=== PATIENT | male | born 1940 | race Caucasian/White ===

== ENCOUNTER 2016-11-21 13:33 | Observation (INO) | payer OTHER ==
[~2016-11-21] VITALS: Ht 182.9 cm; Wt 95.0 kg
[2016-11-21] VITALS (8 sets, daily range): BP systolic 119–166; BP diastolic 54–85; PULSE 68–99; RESP 16–18; TEMP 98.1–98.8; O2SAT 96–99
[~2016-11-21 13:33] MED LIST: PROPOFOL 200 MG/20 ML AMP IV ONE
--- NOTE | 2016-11-21 13:43 | PD ---
Physical Exam Date Seen by Provider: Nov 21, 2016 Time Seen by Provider: 13:41 Narrative 76 YOWM SENT FOR POS HEMACULT AND BL[facility] STO[facility] NO N/ V, ABD PAIN. SYMPTOMS FOR PAST FEW DAYS. VS NOTED WAITING FOR BED PLACEMENT Data Data Last Documented VS Vital Signs Date Time Temp Pulse Resp B/P (MAP) Pulse Ox O2 Delivery O2 Flow Rate FiO2 11/21/16 13:36 98.8 73 18 135/54 (81) 97 Room Air [facility] Medical Record Reviewed: No Supervised Visit with INO: Yes Arya Suarez Nov 21, 2016 13:43
[2016-11-21] MEDS ORDERED: PANTOPRAZOLE SODIUM 40 MG VIAL IV PUSH ONE (14:30)
[2016-11-21 14:36] LABS: BASOPHIL # 0.1 TH/MM3 (0-0.2); EOSINOPHIL # 0.1 TH/MM3 (0-0.4); EOSINOPHIL % 1.3 % (0.0-4.0); HEMATOCRIT 25.8 % (39.0-51.0); HEMO FLAGS DIFF FINAL; LYMPH % 17.1 % (9.0-44.0); LYMPHOCYTE # 1.2 TH/MM3 (1.0-4.8); MEAN CELL VOLUME 92.2 FL (80.0-100.0); MEAN CORPUSCULAR HEMOGLOBIN 31.4 PG (27.0-34.0); MEAN CORPUSCULAR HGB CONC 34.1 % (32.0-36.0); MONO % 8.9 % (0.0-8.0); NEUT % 71.7 % (16.0-70.0); PLATELET COUNT 257 TH/MM3 (150-450); RED CELL DISTRIBUTION WIDTH 13.7 % (11.6-17.2); WHITE BLOOD COUNT 6.9 TH/MM3 (4.0-11.0)
[2016-11-21 14:49] LABS: APTT (PATIENT) 24.1 SEC (24.3-30.1); PROTHROMBIN TIME - PATIENT 10.9 SEC (9.8-11.6)
[2016-11-21 14:54] LABS: ALKALINE PHOSPHATASE 80 U/L (45-117); TOTAL BILIRUBIN ADULT 0.3 MG/DL (0.2-1.0)
[2016-11-21 15:00] LABS: ALT (GPT) 31 U/L (12-78); ANION GAP 7 MEQ/L (5-15); AST (GOT) 24 U/L (15-37); BICARBONATE 25.6 MEQ/L (21.0-32.0); BLOOD UREA NITROGEN 17 MG/DL (7-18); CHLORIDE 109 MEQ/L (98-107); GLOMERULAR FILTRATION RATE 71 ML/MIN (>89); SODIUM (NA) 142 MEQ/L (136-145)
[2016-11-21] MEDS ORDERED: LIPI40TA PO (15:00)
[2016-11-21] MEDS ORDERED: ASPI1TAB91 PO (15:00)
[2016-11-21] MEDS ORDERED: MULT10CA PO (15:00)
[2016-11-21] MEDS ORDERED: FOLI1CAP7 PO (15:00)
[2016-11-21] MEDS ORDERED: POTA-88 PO (15:00)
[2016-11-21] MEDS ORDERED: METO25TA3 PO (15:00)
[2016-11-21] MEDS ORDERED: LISI30TA4 PO (15:00)
[2016-11-21] MEDS ORDERED: PLAV75TA29 PO (15:00)
--- NOTE | 2016-11-21 15:30 | PD ---
HPI Chief Complaint: GI Complaint Time Seen by Provider: 14:06 Travel History International Travel<30 days: No Contact w/Intl Traveler<30days: No Traveled to known affect area: No History of Present Illness HPI 76-year-old male that presents to the ED via private vehicle for evaluation of positive hemocult. Patient comes here for evaluation of this. Per patient and family members she's been weak since today but has been having dark stools for about a week now. He denies any injuries. He denies any diarrhea. Per patient his stools are just black. He states that his diet has been the same. Per significant other he is allergies has decreased today significantly. He is usually very active [place]. 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 The patient his been compliant with his medications. He went today to get a six- month checkup by his doctor and he mentioned the black stools. He was told to come here to get evaluated. He has had a colonoscopy with per patient he is due for one this year. Denies any fevers chills or sweats. No nausea or vomiting. No chest pain or shortness of breath. PFSH Past Medical History Hx Anticoagulant Therapy: Yes High Cholesterol: Yes Cerebrovascular Accident: Yes Coronary Artery Disease: Yes Diabetes: Yes Patient Takes Glucophage: No Diminished Hearing: No Diverticulitis: Yes GERD: Yes Hiatal Hernia: Yes Past Surgical History Abdominal Surgery: Yes (inginual hernia repair) Appendectomy: Yes Cardiac Surgery: Yes Other Surgery: Yes (r carotid endardectomy) Social History Alcohol Use: No Tobacco Use: No Substance Use: No Allergies-Medications (Allergen,Severity, Reaction): Coded Allergies: acetaminophen (Verified Allergy, Unknown, 11/21/16) atenolol (Verified Allergy, Unknown, 11/21/16) fish oil (Verified Allergy, Unknown, 11/21/16) glimepiride (Verified Allergy, Unknown, 11/21/16) hydrochlorothiazide (Verified Allergy, Unknown, 11/21/16) metformin (Verified Allergy, Unknown, 11/21/16) nifedipine (Verified Allergy, Unknown, 11/21/16) oxycodone (Verified Allergy, Unknown, 11/21/16) simvastatin (Verified Allergy, Unknown, 11/21/16) Reported Meds & Prescriptions Reported Meds & Active Scripts Active Reported Klor-Con M10 (Potassium Chloride Microencaps) 10 Meq Tab 10 Meq PO DAILY Preservision Areds 2 Softgel (Vit C/E/Zn/Coppr/Lutein/Zeaxan) 250-200-40 Capsule 1 Cap PO BID Plavix (Clopidogrel Bisulfate) 75 Mg Tab 75 Mg PO DAILY Lipitor (Atorvastatin Calcium) 40 Mg Tab 40 Mg PO HS Folic Acid 0.8 Mg Cap 800 Mcg PO DAILY Aspirin Adult Low Strength (Aspirin) 81 Mg Tabdr 81 Mg PO DAILY Metoprolol Tartrate 25 Mg Tab 25 Mg PO BID Lisinopril 30 Mg Tab 30 Mg PO DAILY Review of Systems Except as stated in HPI: all other systems reviewed are Neg Physical Exam Narrative GENERAL: SKIN: Warm and dry. HEAD: Atraumatic. Normocephalic. EYES: Pupils equal and round. No scleral icterus. No injection or drainage. ENT: No nasal bleeding or discharge. Mucous membranes pink and moist. Tongue is midline. No uvula deviation. NECK: Trachea midline. No JVD. CARDIOVASCULAR: Regular rate and rhythm. No murmurs, S3, S4. RESPIRATORY: No accessory muscle use. Clear to auscultation. Breath sounds equal bilaterally. GASTROINTESTINAL: Abdomen soft, non-tender, nondistended. Hepatic and splenic margins not palpable. MUSCULOSKELETAL: Extremities without clubbing, cyanosis, or edema. No obvious deformities. Full range of motion of the upper and lower extremities bilaterally. 2+ pulses bilaterally. NEUROLOGICAL: Awake and alert. No obvious cranial nerve deficits. Motor grossly within normal limits. Five out of 5 muscle strength in the arms and legs. Normal speech. PSYCHIATRIC: Appropriate mood and affect; insight and judgment normal. Data Data Last Documented VS Vital Signs Date Time Temp Pulse Resp B/P (MAP) Pulse Ox O2 Delivery O2 Flow Rate FiO2 11/21/16 16:02 99 16 161/71 (101) 98 11/21/16 15:57 Room Air 11/21/16 13:36 98.8 Orders Orders Complete Blood Count With Diff (11/21/16 14:14) Comprehensive Metabolic Panel (11/21/16 14:14) Lipase (11/21/16 14:14) Prothrombin Time / Inr (Pt) (11/21/16 14:14) Act Partial Throm Time (Ptt) (11/21/16 14:14) Urinalysis - C+S If Indicated (11/21/16 14:14) Ct Abd/Pel W Iv Contrast(Rout) (11/21/16 14:14) Iv Access Insert/Monitor (11/21/16 14:14) Ecg Monitoring (11/21/16 14:14) Oximetry (11/21/16 14:14) Type And Screen (11/21/16 14:14) Pantoprazole Inj (Protonix Inj) (11/21/16 14:30) Pantoprazole Inj (Protonix Inj) (11/21/16 14:30) Iohexol 350 Inj (Omnipaque 350 Inj) (11/21/16 15:54) Troponin I (11/21/16 16:05) Ckmb (Isoenzyme) Profile (11/21/16 16:05) Electrocardiogram (11/21/16 ) Chest, Single Ap (11/21/16 ) Hgb & Hct (11/21/16 16:27) Hgb & Hct (11/21/16 22:27) Hgb & Hct (11/22/16 04:27) Hgb & Hct (11/22/16 10:27) Place In Observation (11/21/16 ) Vital Signs (Adult) Q4H (11/21/16 16:27) Activity Bed Rest With Brp (11/21/16 16:27) Bedside Glucose SID.AC&HS (11/21/16 16:27) Recoil Spring Winder / Telemetry .CONTINUOUS (11/21/16 16:27) Intake + Output SID.QSHIFT (11/21/16 16:27) Notify Dr: Other (11/21/16 16:27) Diet Npo (11/21/16 Dinner) Sodium Chlor 0.9% 1000 Ml Inj (Ns 1000 M (11/21/16 17:00) Sodium Chloride 0.9% Flush (Ns Flush) (11/21/16 16:30) Sodium Chloride 0.9% Flush (Ns Flush) (11/21/16 21:00) Acetaminophen (Tylenol) (11/21/16 16:30) Ondansetron Inj (Zofran Inj) (11/21/16 16:30) Basic Metabolic Panel (Bmp) (11/22/16 06:00) Complete Blood Count With Diff (11/22/16 06:00) Resp Oxygen Avery C Titrat 1-4 L (11/21/16 ) Scd Bilateral/Knee High SID.BID (11/21/16 16:27) Pharmacologic Contraindication (11/21/16 16:27) Naloxone Inj (Narcan Inj) (11/21/16 16:30) Docusate Sodium-Senna (Indira-Colace) (11/21/16 21:00) Magnesium Hydroxide Liq (Milk Of Magnesi (11/21/16 16:30) Sennosides (Senokot) (11/21/16 16:30) Bisacodyl Supp (Dulcolax Supp) (11/21/16 16:30) Lactulose Liq (Lactulose Liq) (11/21/16 16:30) Consult Gastroenterology (11/21/16 ) Admit Order (Ed Use Only) (11/21/16 16:30) CKMB (11/21/16 16:05) CKMB% (11/21/16 16:05) Labs Laboratory Tests Test 11/21/16 14:25 11/21/16 16:05 White Blood Count 6.9 TH/MM3 Red Blood Count 2.80 MIL/MM3 Hemoglobin 8.8 GM/DL Hematocrit 25.8 % Mean Corpuscular Volume 92.2 FL Mean Corpuscular Hemoglobin 31.4 PG Mean Corpuscular Hemoglobin Concent 34.1 % Red Cell Distribution Width 13.7 % Platelet Count 257 TH/MM3 Mean Platelet Volume 8.8 FL Neutrophils (%) (Auto) 71.7 % Lymphocytes (%) (Auto) 17.1 % Monocytes (%) (Auto) 8.9 % Eosinophils (%) (Auto) 1.3 % Basophils (%) (Auto) 1.0 % Neutrophils # (Auto) 5.0 TH/MM3 Lymphocytes # (Auto) 1.2 TH/MM3 Monocytes # (Auto) 0.6 TH/MM3 Eosinophils # (Auto) 0.1 TH/MM3 Basophils # (Auto) 0.1 TH/MM3 CBC Comment DIFF FINAL Differential Comment Prothrombin Time 10.9 SEC Prothromb Time International Ratio 1.0 RATIO Activated Partial Thromboplast Time 24.1 SEC Blood Urea Nitrogen 17 MG/DL Creatinine 1.02 MG/DL Random Glucose 131 MG/DL Total Protein 6.5 GM/DL Albumin 3.4 GM/DL Calcium Level 8.4 MG/DL Alkaline Phosphatase 80 U/L Aspartate Amino Transf (AST/SGOT) 24 U/L Alanine Aminotransferase (ALT/SGPT) 31 U/L Total Bilirubin 0.3 MG/DL Sodium Level 142 MEQ/L Potassium Level 4.0 MEQ/L Chloride Level 109 MEQ/L Carbon Dioxide Level 25.6 MEQ/L Anion Gap 7 MEQ/L Estimat Glomerular Filtration Rate 71 ML/MIN Lipase 184 U/L Total Creatine Kinase 201 U/L Troponin I 0.02 NG/ML MDM Medical Decision Making Medical Screen Exam Complete: Yes Emergency Medical Condition: Yes Medical Record Reviewed: Yes Interpretation(s) CBC & BMP Diagram 11/21/16 14:25 Total Protein 6.5, Albumin 3.4, Calcium Level 8.4 L, Alkaline Phosphatase 80, Aspartate Amino Transf (AST/SGOT) 24, Alanine Aminotransferase (ALT/SGPT) 31, Total Bilirubin 0.3 coags WNL EKG shows no sign of acute ischemia or arrythmia read by me and attending. Last Impressions Abdomen/Pelvis CT 11/21/16 1414 Signed Impressions: Service Date/Time: , November 21, 2016 15:46 - CONCLUSION: Common diverticuli, vascular calcifications and degenerative changes of the lumbar spine. Freda Recinos MD Differential Diagnosis GI bleed versus ulcer versus colitis versus diverticulitis versus cancer versus anemia Narrative Course 76-year-old male that presents to the ED for evaluation of GI bleed. Patient was properly examined and was found to have signs and symptoms consistent with GI bleed. Hemoccult was done and it was positive. No sign of fresh blood. His stool is dark. No sign of hemorrhoids noted. Labs and imaging were ordered. Patient was found to be anemic. Patient takes Plavix. Patient will need to be admitted for further evaluation. He will require rechecks of CBCs as well as possible colonoscopy. Patient was started on Protonix. CT showed diverticula but otherwise no sign of infection. Patient was told results. Patient is anemic. Patient takes a blood thinner. Recommendation at this time is for admission for likely GI consult and serial CBCs. Patient was told this and agrees with plan. Patient did have an episode chest discomfort for ED nurse report. EKG and troponin and CK-MB were ordered. Patient states that the pain improved without treatment. Patient was admitted to Dr. Becerra who agrees to admission. Diagnosis Primary Impression: GI bleed Qualified Codes: K92.2 - Gastrointestinal hemorrhage, unspecified Additional Impression: Anemia Qualified Codes: D64.9 - Anemia, unspecified Admitting Information Admitting Physician Requests: it Jimbo Chacon Nov 21, 2016 15:30
[2016-11-21] MEDS ORDERED: IOHEXOL 350 MG/ML 10 ML VIAL (for RAD DIAG) IVCONTRAST ONE (15:54)
[2016-11-21] MEDS: PANTOPRAZOLE INJ 80 MG in SODIUM CHLORIDE 0.9% INJ 100 ML IV SCH (15:55)
--- NOTE | 2016-11-21 16:09 | RADRPT ---
EXAM DATE/TIME: 11/21/2016 15:46 [facility] COMPARISON: No previous studies available for comparison. INDICATIONS : Abdominal pain, weakness, black stools IV CONTRAST: 96 cc Omnipaque 350 (iohexol) IV ORAL CONTRAST: No oral contrast ingested. RADIATION DOSE: 11.77 CTDIvol (mGy) MEDICAL HISTORY : None SURGICAL HISTORY : None. ENCOUNTER: Initial ACUITY: 1 day PAIN SCALE: 5/10 LOCATION: diffuse abdomen TECHNIQUE: Volumetric scanning of the abdomen and pelvis was performed. Using automated exposure control and adjustment of the mA and/or kV according to patient size, radiation dose was kept as low as reasonably achievable to obtain optimal diagnostic quality images. DICOM format image data is av ailable electronically for review and comparison. FINDINGS: CT Abdomen: The liver, spleen, pancreas, kidneys, adrenals are unremarkable. There is no evidence for any appreciable pathological adenopathy, free fluid, or bowel obstruction. Chronic vascular calcifi cations are present involving the aorta, iliac arteries without any significant stenosis or aneurysma l dilatations for technique. CT pelvis: There is no evidence for mass, abscess formation, or any significant adenopathy within the pelvis. The prostate gland is inhomogeneous and measures 3.4 x 4.6 cm in AP and transverse diameters and nonspecific. There are scattered diverticuli mainly in the sigmoid colon without definite signs of diverticulitis. There are degenerative changes and possible bulging discs in the lower lumbosacral spine not adequately characterized. CONCLUSION: Common diverticuli, vascular calcifications and degenerative changes of the lumbar sp ine. Freda Recinos MD on November 21, 2016 at 16:04 Board Certified Radiologist. This report was verified electronically.
[2016-11-21] MEDS ORDERED: MAGNESIUM HYDROXIDE SUSP 30 ML CUP PO PRN (16:30)
[2016-11-21] MEDS ORDERED: BISACODYL 10 MG SUPP RECTAL PRN (16:30)
[2016-11-21] MEDS ORDERED: ONDANSETRON HCL 4 MG/2 ML VIAL IVP PRN (16:30)
[2016-11-21] MEDS ORDERED: SODIUM CHLORIDE 0.9% FLUSH 10 ML FLUSH IV FLUSH PRN (16:30)
[2016-11-21] MEDS ORDERED: LACTULOSE SYRUP 20 GM/30 ML CUP PO PRN (16:30)
[2016-11-21] MEDS ORDERED: ACETAMINOPHEN 325 MG TAB PO PRN (16:30)
[2016-11-21] MEDS ORDERED: NALOXONE HCL 0.4 MG/ML AMP IV PRN (16:30)
[2016-11-21] MEDS ORDERED: SENNOSIDES 8.6 MG TAB PO PRN (16:30)
[2016-11-21 16:38] LABS: CREATINE KINASE 201 U/L (39-308)
[2016-11-21 16:50] LABS: CKMB 3.3 NG/ML (0.5-3.6)
--- NOTE | 2016-11-21 17:09 | RADRPT ---
EXAM DATE/TIME: 11/21/2016 16:38 [facility] COMPARISON: No previous studies available for comparison. INDICATIONS : Chest pain. MEDICAL HISTORY : Cardiovascular disease. SURGICAL HISTORY : CABG. ENCOUNTER: Initial ACUITY: 2 days PAIN SCORE: 3/10 LOCATION: Bilateral chest FINDINGS: The lungs are clear without infiltrate, nodule, or mass. There is no appreciable pleural effusion fo r technique. Heart and mediastinum are unremarkable. There is evidence for prior median sternotomy. CONCLUSION: No acute cardiopulmonary disease. Freda Recinos MD on November 21, 2016 at 17:08 Board Certified Radiologist. This report was verified electronically.
--- NOTE | 2016-11-21 17:24 | PD.CONS ---
HPI History of Present Illness This is a 76 year old male with hx CABG, CVA 4y ago on plavix who was advised to come to ER after pos hemoccult found by PCP and black stools. he has had black stools for the last week. He says he has been taking ibuprofen "lately," 3 pills a day, but cannot tell me any more. Takes baby ASA and plavix. No prior hx GIB or gastric ulcers. [facility], [facility] were [facility]. Never had EGD. Admits frequent loose stools 4-5 in the morning last 2 years. Denies abd pain, red blood in stool, weight loss, n/v. Had plavix this morning. (Mariela Huynh) PFSH Past Medical History CVA HTN IDDM Past Surgical History CABG right hip replacement appendectomy inguinal hernia repair (Mariela Huynh) Coded Allergies: acetaminophen (Verified Allergy, Unknown, 11/21/16) atenolol (Verified Allergy, Unknown, 11/21/16) fish oil (Verified Allergy, Unknown, 11/21/16) glimepiride (Verified Allergy, Unknown, 11/21/16) hydrochlorothiazide (Verified Allergy, Unknown, 11/21/16) metformin (Verified Allergy, Unknown, 11/21/16) nifedipine (Verified Allergy, Unknown, 11/21/16) oxycodone (Verified Allergy, Unknown, 11/21/16) simvastatin (Verified Allergy, Unknown, 11/21/16) Family History MA - FATHER had 13 uterine cancer mother Social History occasional ETOH quit smoking 1998 no illicit drug use (Mariela Huynh) Review of Systems Constitutional: DENIES: Fever, Weight loss Eyes: DENIES: Blurred vision Ears, nose, mouth, throat: DENIES: Hearing loss Respiratory: DENIES: Hemoptysis Cardiovascular: DENIES: Chest pain Gastrointestinal: COMPLAINS OF: Black stools, Diarrhea, DENIES: Abdominal pain , Bloody stools, Constipation, Nausea, Vomiting, Hematemesis Genitourinary: DENIES: Hematuria Musculoskeletal: DENIES: Joint Swelling Hematologic/lymphatic: COMPLAINS OF: Bruising Neurologic: DENIES: Abnormal gait Psychiatric: DENIES: Confusion (Mariela Huynh) GI Exam Vitals I&O Vital Signs Date Time Temp Pulse Resp B/P (MAP) Pulse Ox O2 Delivery O2 Flow Rate FiO2 11/21/16 16:43 98 21 11/21/16 16:02 99 16 161/71 (101) 98 11/21/16 15:57 93 18 144/67 (92) 99 Room Air 11/21/16 14:24 68 16 119/58 (78) 96 11/21/16 14:23 Room Air 11/21/16 13:36 98.8 73 18 135/54 (81) 97 Room Air Imaging Last Impressions Abdomen/Pelvis CT 11/21/16 1414 Signed Impressions: Service Date/Time: November 15:46 - CONCLUSION: Common diverticuli, vascular calcifications and degenerative changes of the lumbar spine. Freda Recinos MD Laboratory Test 11/21/16 14:25 11/21/16 16:05 White Blood Count 6.9 TH/MM3 Red Blood Count 2.80 MIL/MM3 Hemoglobin 8.8 GM/DL Hematocrit 25.8 % Mean Corpuscular Volume 92.2 FL Mean Corpuscular Hemoglobin 31.4 PG Mean Corpuscular Hemoglobin Concent 34.1 % Red Cell Distribution Width 13.7 % Platelet Count 257 TH/MM3 Mean Platelet Volume 8.8 FL Neutrophils (%) (Auto) 71.7 % Lymphocytes (%) (Auto) 17.1 % Monocytes (%) (Auto) 8.9 % Eosinophils (%) (Auto) 1.3 % Basophils (%) (Auto) 1.0 % Neutrophils # (Auto) 5.0 TH/MM3 Lymphocytes # (Auto) 1.2 TH/MM3 Monocytes # (Auto) 0.6 TH/MM3 Eosinophils # (Auto) 0.1 TH/MM3 Basophils # (Auto) 0.1 TH/MM3 CBC Comment DIFF FINAL Differential Comment Prothrombin Time 10.9 SEC Prothromb Time International Ratio 1.0 RATIO Activated Partial Thromboplast Time 24.1 SEC Blood Urea Nitrogen 17 MG/DL Creatinine 1.02 MG/DL Random Glucose 131 MG/DL Total Protein 6.5 GM/DL Albumin 3.4 GM/DL Calcium Level 8.4 MG/DL Alkaline Phosphatase 80 U/L Aspartate Amino Transf (AST/SGOT) 24 U/L Alanine Aminotransferase (ALT/SGPT) 31 U/L Total Bilirubin 0.3 MG/DL Sodium Level 142 MEQ/L Potassium Level 4.0 MEQ/L Chloride Level 109 MEQ/L Carbon Dioxide Level 25.6 MEQ/L Anion Gap 7 MEQ/L Estimat Glomerular Filtration Rate 71 ML/MIN Lipase 184 U/L Total Creatine Kinase 201 U/L Creatine Kinase MB 3.3 NG/ML Troponin I 0.02 NG/ML Physical Examination HEENT: PERRL; normocephalic; atraumatic; no jaundice. CHEST: CTA CARDIAC: RRR ABDOMEN: Soft, nondistended, nontender; no hepatosplenomegaly; bowel sounds are present in all four quadrants. EXTREMITIES: No clubbing, cyanosis, or edema. SKIN: Normal; no rash; no jaundice. 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 (Mariela Huynh) Assessment and Plan Plan ASSESSMENT - anemia, black stools - hgb 8.8 on admission. heme pos stool, black stool for last week, recent NSAID use but unclear how much. On plavix for CABG, CVA 4y ago last had plavix this morning PLAN - EGD when plavix held 3 days - monitor HH - transfuse as needed - hold plavix - supportive care - further recs to follow This pt seen by myself and Dr Osorio and this note is written on his behalf (Mariela Huynh) Plan Patient was seen and examined, agree with the above note, we will plan on doing upper endoscopy tomorrow because of his heart condition I don't want to hold the Plavix for 2 long at least we can do diagnostic with minimal intervention patient agreeable to have this done. (Jairo Osorio MD) Mariela Huynh Nov 21, 2016 17:24 Jairo Osorio MD Nov 21, 2016 22:20
[2016-11-21] MEDS: SODIUM CHLOR 0.9% 1000 ML INJ 1,000 ML IV SCH (17:39)
--- NOTE | 2016-11-21 17:55 | HHI.HP ---
HPI Service [facility] Admission Diagnosis GI bleed, chest pain Diagnoses: Chief Complaint: Feeling tired and black stools. Travel History International Travel<30 Days: No Contact w/Intl Traveler <30 Da: No Traveled to Known Affected Are: No History of Present Illness Written by Wally Savage PA-C acting as scribe for Dr. Freda Becerra on 11/21/16 at 17:47. Mr. Caceres is 76 years old, with history of hiatal hernia, and GERD, cerebrovascular accident, hypertension, and insulin dependent diabetes. Significant surgery includes triple bypass approximately 3 years ago. [facility] as result of a positive guaiac test. Over the course of the past month, Mr. Caceres was reportedly felt a little bit more tired than usual as well as having intermittent chest discomfort. He did not qualify his chest discomfort as specifically as pain nor could he repeat the intensity of it. He did indicate that it did not radiate into his back arm or into his neck. He reported that over the course of the past week, he has been having black stools. Per the medical record Mr. Caceres is taking NSAIDs on a regular basis. At time of interview, Mr. Caceres denied fever, cough, abdominal pain, nausea and vomiting. As above, he did endorse chest discomfort, shortness of breath, fatigue, black stools. Diarrhea was endorsed however this is reportedly related to medication. Diarrhea is usually in the morning and abates in the afternoon. A 10 point review of systems was conducted and, except as noted above, was negative. Review of Systems Except as stated in HPI: all other systems reviewed are Neg Past Family Social History Past Medical History CVA HTN IDDM GERD Hiatal Hernia Past Surgical History CABG right hip replacement appendectomy inguinal hernia repair Right carotid endarterectomy Reported Medications Reported Meds & Active Scripts Active Reported Klor-Con M10 (Potassium Chloride Microencaps) 10 Meq Tab 10 Meq PO DAILY Preservision Areds 2 Softgel (Vit C/E/Zn/Coppr/Lutein/Zeaxan) 250-200-40 Capsule 1 Cap PO BID Plavix (Clopidogrel Bisulfate) 75 Mg Tab 75 Mg PO DAILY Lipitor (Atorvastatin Calcium) 40 Mg Tab 40 Mg PO HS Folic Acid 0.8 Mg Cap 800 Mcg PO DAILY Aspirin Adult Low Strength (Aspirin) 81 Mg Tabdr 81 Mg PO DAILY Metoprolol Tartrate 25 Mg Tab 25 Mg PO BID Lisinopril 30 Mg Tab 30 Mg PO DAILY Allergies: Coded Allergies: acetaminophen (Verified Allergy, Unknown, 11/21/16) atenolol (Verified Allergy, Unknown, 11/21/16) fish oil (Verified Allergy, Unknown, 11/21/16) glimepiride (Verified Allergy, Unknown, 11/21/16) hydrochlorothiazide (Verified Allergy, Unknown, 11/21/16) metformin (Verified Allergy, Unknown, 11/21/16) nifedipine (Verified Allergy, Unknown, 11/21/16) oxycodone (Verified Allergy, Unknown, 11/21/16) simvastatin (Verified Allergy, Unknown, 11/21/16) Active Ordered Medications Current Medications Medications (Trade) Dose Ordered Sig/Donovan Route Start Time Stop Time Status Last Admin Pantoprazole Sodium 80 mg/ Sodium Chloride 100 ml @ 10 mls/hr CONTINUOUS IV 11/21/16 14:30 11/21/16 15:55 Sodium Chloride 1,000 ml @ 100 mls/hr Q10H IV 11/21/16 17:00 11/21/16 17:39 (NS Flush) 2 ml UNSCH PRN IV FLUSH 11/21/16 16:30 (NS Flush) 2 ml BID IV FLUSH 11/21/16 21:00 (Zofran Inj) 4 mg Q6H PRN IVP 11/21/16 16:30 (Narcan Inj) 0.4 mg UNSCH PRN IV 11/21/16 16:30 (Indira-Colace) 1 tab BID PO 11/21/16 21:00 (Milk Of Magnesia Liq) 30 ml Q12H PRN PO 11/21/16 16:30 (Senokot) 17.2 mg Q12H PRN PO 11/21/16 16:30 (Dulcolax Supp) 10 mg DAILY PRN RECTAL 11/21/16 16:30 (Lactulose Liq) 30 ml DAILY PRN PO 11/21/16 16:30 Family History RI - FATHER had 13 heart attacks and in his 40's. uterine cancer Mother Social History occasional ETOH quit smoking 1998 duration and amount not reported. no illicit/recreational drug use Physical Exam Vital Signs Vital Signs Date Time Temp Pulse Resp B/P (MAP) Pulse Ox O2 Delivery O2 Flow Rate FiO2 11/21/16 16:43 98 21 11/21/16 16:02 99 16 161/71 (101) 98 11/21/16 15:57 93 18 144/67 (92) 99 Room Air 11/21/16 14:24 68 16 119/58 (78) 96 11/21/16 14:23 Room Air 11/21/16 13:36 98.8 73 18 135/54 (81) 97 Room Air Physical Exam GENERAL: This is a well-nourished, well-developed patient, in no apparent distress. SKIN: No rashes, warm and dry HEAD: Atraumatic. Normocephalic. EYES: Pupils equal round and reactive. Extraocular motions intact. No scleral icterus. ENT: Nose without bleeding, or drainage, Airway patent. NECK: Trachea midline. Supple CARDIOVASCULAR: Regular rate and rhythm systolic murmur at aortic arch noted (3/ 6) RESPIRATORY: Fair air entry bilaterally. No wheezes, rales, or rhonchi. GASTROINTESTINAL: Abdomen soft, non-tender, nondistended. Positive bowel sounds MUSCULOSKELETAL: Extremities without clubbing, cyanosis, or edema. Pedal pulses appreciated NEUROLOGICAL: Awake and alert. Moves all extremity. Normal speech.no focal neurological deficit Laboratory Laboratory Tests Test 11/21/16 14:25 11/21/16 16:05 White Blood Count 6.9 Red Blood Count 2.80 Hemoglobin 8.8 Hematocrit 25.8 Mean Corpuscular Volume 92.2 Mean Corpuscular Hemoglobin 31.4 Mean Corpuscular Hemoglobin Concent 34.1 Red Cell Distribution Width 13.7 Platelet Count 257 Mean Platelet Volume 8.8 Neutrophils (%) (Auto) 71.7 Lymphocytes (%) (Auto) 17.1 Monocytes (%) (Auto) 8.9 Eosinophils (%) (Auto) 1.3 Basophils (%) (Auto) 1.0 Neutrophils # (Auto) 5.0 Lymphocytes # (Auto) 1.2 Monocytes # (Auto) 0.6 Eosinophils # (Auto) 0.1 Basophils # (Auto) 0.1 CBC Comment DIFF FINAL Differential Comment Prothrombin Time 10.9 Prothromb Time International Ratio 1.0 Activated Partial Thromboplast Time 24.1 Blood Urea Nitrogen 17 Creatinine 1.02 Random Glucose 131 Total Protein 6.5 Albumin 3.4 Calcium Level 8.4 Alkaline Phosphatase 80 Aspartate Amino Transf (AST/SGOT) 24 Alanine Aminotransferase (ALT/SGPT) 31 Total Bilirubin 0.3 Sodium Level 142 Potassium Level 4.0 Chloride Level 109 Carbon Dioxide Level 25.6 Anion Gap 7 Estimat Glomerular Filtration Rate 71 Lipase 184 Total Creatine Kinase 201 Creatine Kinase MB 3.3 Troponin I 0.02 Result Diagram: 11/21/16 1425 11/21/16 1425 Imaging Last Impressions Abdomen/Pelvis CT 11/21/16 1414 Signed Impressions: Service Date/Time: November 15:46 - CONCLUSION: Common diverticuli, vascular calcifications and degenerative changes of the lumbar spine. Freda Recinos MD Chest X-Ray 11/21/16 0000 Signed Impressions: Service Date/Time: November 16:38 - CONCLUSION: No acute cardiopulmonary disease. MD Alana Orozco VTE Risk Assessment Caprini VTE Risk Assessment: Mod/High Risk (score >= 2) VTE Pharm Contraindication: Active bleeding Caprini Risk Assessment Model Point Value = 1 Point Value = 2 Point Value = 3 Point Value = 5 Age 41-60 Minor surgery BMI > 25 kg/m2 Swollen legs Varicose veins or History of unexplained or recurrent spontaneous Oral contraceptives or hormone replacement Sepsis (< 1 month) Serious lung disease, including pneumonia (< 1 month) Abnormal pulmonary function Acute myocardial infarction Congestive heart failure (< 1 month) History of inflammatory bowel disease Medical patient at bed rest Age 61-74 Arthroscopic surgery Major open surgery (> 45 min) Laparoscopic surgery (> 45 min) Malignancy Confined to bed (> 72 hours) Immobilizing plaster cast Central venous access Age >= 75 History of VTE Family history of VTE Factor V Leiden Prothrombin [id number] Lupus anticoagulant Anticardiolipin antibodies Elevated serum homocysteine Heparin-induced thrombocytopenia Other congenital or acquired thrombophilia Stroke (< 1 month) Elective arthroplasty Hip, pelvis, or leg fracture Acute spinal cord injury (< 1 month) Prophylaxis Regimen Total Risk Factor Score Risk Level Prophylaxis Regimen 0-1 Low Early ambulation 2 Moderate Order ONE of the following: *Sequential Compression Device (SCD) *Heparin 5000 units SQ BID 3-4 Higher Order ONE of the following medications: *Heparin 5000 units SQ TID *Enoxaparin/Lovenox 40 mg SQ daily (WT < 150 kg, CrCl > 30 mL/min) *Enoxaparin/Lovenox 30 mg SQ daily (WT < 150 kg, CrCl > 10-29 mL/min) *Enoxaparin/Lovenox 30 mg SQ BID (WT < 150 kg, CrCl > 30 mL/min) AND/OR *Sequential Compression Device (SCD) 5 or more Highest Order ONE of the following medications: *Heparin 5000 units SQ TID (Preferred with Epidurals) *Enoxaparin/Lovenox 40 mg SQ daily (WT < 150 kg, CrCl > 30 mL/min) *Enoxaparin/Lovenox 30 mg SQ daily (WT < 150 kg, CrCl > 10-29 mL/min) *Enoxaparin/Lovenox 30 mg SQ BID (WT < 150 kg, CrCl > 30 mL/min) AND *Sequential Compression Device (SCD) Assessment and Plan Assessment and Plan Mr. Caceres is 76 years old, with history of hiatal hernia, and GERD, cerebrovascular accident, hypertension, and insulin dependent diabetes. Significant surgery includes triple bypass approximately 3 years ago. [facility] Cace[facility] to [facility] as result of a positive guaiac test. Over the course of the past month, Mr. Caceres was reportedly felt a little bit more tired than usual as well as having intermittent chest discomfort. He did not qualify his chest discomfort as specifically as pain nor could he repeat the intensity of it. He did indicate that it did not radiate into his back arm or into his neck. He reported that over the course of the past week, he has been having black stools. Per the medical record Mr. Caceres is taking NSAIDs on a regular basis. GI bleed Normocytic anemia - positive rectal exam - hemoglobin 8.8 upon admission -Serial H&H q 6 hrs -Transfuse in the event hemoglobin is less than 8. -Protonix drip -Hold Plavix -GI consult; planned EGD on 11/25. Heart murmur -Requested nursing to contact patient's transmission supervisor (Dr. Natalia Toro [phone]) for most recent echocardiogram. Insulin-dependent diabetes -Continue home regimen Hypertension -Continue lisinopril 30 mg daily -Continue metoprolol 25 mg twice a day Hyperlipidemia -Continue atorvastatin 40 mg daily at bedtime DVT prophylaxis -No pharmaceutical anticoagulant therapy at this time due to active bleeding ; SCDs. Discussed Condition With Pt and his , GI team. Physician Certification 2 Midnight Certification Type: Admission for Inpatient Services Order for Inpatient Services The services are ordered in accordance with Medicare regulations or non- Medicare payer requirements, as applicable. In the case of services not specified as inpatient-only, they are appropriately provided as inpatient services in accordance with the 2-midnight benchmark. Estimated LOS (days): 4 Four days is the estimated time the patient will need to remain in the hospital , assuming treatment plan goals are met and no additional complications. Post-Hospital Plan: Home Notes: This note was transcribed by scribe [Wally Savage . ]. I, Dr. Obey Becerra personally performed the history, physical exam, and medical decision making; and confirmed the accuracy of the information in the transcribed note. Authenticated by Dr. Obey Becerra on11/21/16 at 17:57 Wally Savage Jr. Nov 21, 2016 17:55 Obey Becerra MD Nov 21, 2016 18:55
[2016-11-21 18:02] LABS: BLOOD, URINE NEG (NEG); COMMENT (UR) CULT NOT INDICATED; CULTURE IF INDICATED CULT NOT INDICATED; GLUCOSE,URINE NEG (NEG); KETONE, URINE TRACE mg/dL (NEG); MUCUS URINE FEW /lpf (OCC); NITRITE,URINE NEG (NEG); PH, URINE 5.5 (5.0-8.5); SQUAMOUS EPITHELIAL CELL URINE <1 /hpf (0-5); URINE COLOR YELLOW (YELLW/STRAW)
[2016-11-21] MEDS: DOCUSATE SODIUM 50 MG/SENNA 8.6 MG TAB PO SCH (21:00)
[2016-11-21] MEDS: SODIUM CHLORIDE 0.9% FLUSH 10 ML FLUSH IV FLUSH SCH (21:00)
[2016-11-21 22:57] LABS: HEMATOCRIT 26.7 % (39.0-51.0); REVIEW FLAG FINAL
[2016-11-22] VITALS (8 sets, daily range): BP systolic 124–160; BP diastolic 62–82; PULSE 66–87; RESP 16–18; TEMP 97.8–98.2; O2SAT 94–98
[2016-11-22] MEDS: PANTOPRAZOLE INJ 80 MG in SODIUM CHLORIDE 0.9% INJ 100 ML IV SCH (04:12)
[2016-11-22] MEDS: SODIUM CHLOR 0.9% 1000 ML INJ 1,000 ML IV SCH ×2 (04:13→14:07)
[2016-11-22 08:20] LABS: HEMATOCRIT 23.9 % (39.0-51.0); REVIEW FLAG FINAL
[2016-11-22] MEDS: SODIUM CHLORIDE 0.9% FLUSH 10 ML FLUSH IV FLUSH SCH ×2 (09:00→21:00)
[2016-11-22] MEDS: DOCUSATE SODIUM 50 MG/SENNA 8.6 MG TAB PO SCH ×2 (09:00→21:10)
[2016-11-22] MEDS ORDERED: PNEUMOCOCCAL POLYVALENT INJ 25 MCG/0.5 ML SYR IM ONE (10:00)
[2016-11-22] MEDS ORDERED: INFLUENZA VIRUS VACCINE (QUADRIVALENT) 0.5 ML SYR IM ONE (10:00)
--- NOTE | 2016-11-22 11:04 | HHI.GIFU ---
Subjective Remarks Patient lying comfortably in bed now, no sign of active bleeding, no abdominal pain Objective Vitals I&O Vital Signs Date Time Temp Pulse Resp B/P (MAP) Pulse Ox O2 Delivery O2 Flow Rate FiO2 11/22/16 07:37 98.0 68 16 160/69 (99) 97 11/22/16 04:27 97.8 87 18 148/82 (104) 97 11/21/16 23:18 98.1 71 18 166/85 (112) 96 11/21/16 20:39 11/21/16 20:23 97 11/21/16 19:57 68 16 164/73 (103) 97 Room Air 11/21/16 16:43 98 21 11/21/16 16:02 99 16 161/71 (101) 98 11/21/16 15:57 93 18 144/67 (92) 99 Room Air 11/21/16 14:24 68 16 119/58 (78) 96 11/21/16 14:23 Room Air 11/21/16 13:36 98.8 73 18 135/54 (81) 97 Room Air I/O 11/21/16 11/21/16 11/21/16 11/22/16 11/22/16 11/22/16 07:00 15:00 23:00 07:00 15:00 23:00 Intake Total 200 ml 400 ml Output Total 200 ml Balance 200 ml 200 ml Intake Oral 200 ml Other 400 ml Output Urine Total 200 ml Laboratory Laboratory Tests Test 11/21/16 14:25 11/21/16 16:05 11/21/16 17:30 11/21/16 22:45 White Blood Count 6.9 Red Blood Count 2.80 Hemoglobin 8.8 9.0 Hematocrit 25.8 26.7 Mean Corpuscular Volume 92.2 Mean Corpuscular Hemoglobin 31.4 Mean Corpuscular Hemoglobin Concent 34.1 Red Cell Distribution Width 13.7 Platelet Count 257 Mean Platelet Volume 8.8 Neutrophils (%) (Auto) 71.7 Lymphocytes (%) (Auto) 17.1 Monocytes (%) (Auto) 8.9 Eosinophils (%) (Auto) 1.3 Basophils (%) (Auto) 1.0 Neutrophils # (Auto) 5.0 Lymphocytes # (Auto) 1.2 Monocytes # (Auto) 0.6 Eosinophils # (Auto) 0.1 Basophils # (Auto) 0.1 CBC Comment DIFF FINAL Differential Comment Prothrombin Time 10.9 Prothromb Time International Ratio 1.0 Activated Partial Thromboplast Time 24.1 Blood Urea Nitrogen 17 Creatinine 1.02 Random Glucose 131 Total Protein 6.5 Albumin 3.4 Calcium Level 8.4 Alkaline Phosphatase 80 Aspartate Amino Transf (AST/SGOT) 24 Alanine Aminotransferase (ALT/SGPT) 31 Total Bilirubin 0.3 Sodium Level 142 Potassium Level 4.0 Chloride Level 109 Carbon Dioxide Level 25.6 Anion Gap 7 Estimat Glomerular Filtration Rate 71 Lipase 184 Total Creatine Kinase 201 Creatine Kinase MB 3.3 Troponin I 0.02 0.03 Urine Color YELLOW Urine Turbidity CLEAR Urine pH 5.5 Urine Specific [place] 1.050 Urine Protein TRACE Urine Glucose (UA) NEG Urine Ketones TRACE Urine Occult Blood NEG Urine Nitrite NEG Urine Bilirubin NEG Urine Urobilinogen LESS THAN 2.0 Urine Leukocyte Esterase NEG Urine RBC 2 Urine WBC 1 Urine Squamous Epithelial Cells <1 Urine Mucus FEW Microscopic Urinalysis Comment CULT NOT INDICATED Test 11/22/16 06:27 Hemoglobin 8.3 Hematocrit 23.9 Troponin I 0.07 Physical Exam HEENT: Pupils round and reactive to light; normocephalic; atraumatic; no jaundice. Throat is clear. NECK: Neck is supple, no JVD, no lymphadenopathy. CHEST: Chest is clear to auscultation and percussion. CARDIAC: Regular rate and rhythm with no murmur gallop or rubs. ABDOMEN: Soft, nondistended, nontender; no hepatosplenomegaly; bowel sounds are present in all four quadrants. EXTREMITIES: No clubbing, cyanosis, or edema. SKIN: Normal; no rash; no jaundice. URANIUM PROCESSING SUPERVISOR: No focal deficits; alert and oriented times three. Assessment and Plan Plan Patient was seen and examined, agree with the above note, no sign of active bleeding , g upper endoscopy showed gastric ulcer no active bleeding and irregular Z line biopsy were not done because the patient on anticoagulation Recommendation No NSAIDs Lowest possible dose of anticoagulation with monitoring of the hemoglobin may start feeding patient Protonix 40 mg daily Repeat upper endoscopy in 2 months Jairo Osorio MD Nov 22, 2016 11:04 am
--- NOTE | 2016-11-22 11:07 | GIPROC ---
[facility] [address] [facility], [id number] EGD PROCEDURE REPORT EXAM DATE: 11/22/2016 PATIENT NAME: Kehinde Caceres MR #: [id number] BIRTHDATE: 1940 ATTENDING: Jairo Osorio MD ORDER #: [id number] UX VISUAL DESIGNER: Lola Rincon and Kristi Olivares STATUS: inpatient INDICATIONS: The patient is a 76 yr old male here for an EGD due to Anemia GI bleed PROCEDURE PERFORMED: EGD, diagnostic MEDICATIONS: None and Per Anesthesia. TOPICAL ANESTHETIC: none CONSENT: The patient understands the risks and benefits of the procedure and understands that these risks include, but are not limited to: sedation, allergic reaction, infection, perforation and/or bleeding. Alternative means of evaluation and treatment include, among others: physical exam, x-rays, and/or surgical intervention. The patient elects to proceed with this endoscopic procedure. medical equipment was checked for proper function. Hand hygiene and appropriate measures for infection prevention was taken. After the risks, benefits and alternatives of the procedure were thoroughly explained, Informed consent was verified, confirmed and timeout was successfully executed by the treatment team. The patient was anesthetized with topical anesthesia and the [employer] [id number] endoscope was introduced through the mouth and advanced to the second portion of the duodenum. Retroflexed views revealed no abnormalities The gastroscope was then slowly withdrawn and removed. Normal esophagus except irregular Z line biopsy was not done because patient on anticoagulation. Gastric ulcer in the antrum no active bleeding no sign of recent bleed, no biopsy was done because of patient on anticoagulation. ADVERSE EVENTS: There were no complications. IMPRESSIONS: 1. Normal esophagus except irregular Z line biopsy was not done because patient on anticoagulation 2. Gastric ulcer in the antrum no active bleeding no sign of recent bleed, no biopsy was done because of patient on anticoagulation 3. Retroflexed views revealed no abnormalities RECOMMENDATIONS: No NSAIDs Lowest possible dose of anticoagulation with monitoring of the hemoglobin may start feeding patient Protonix 40 mg daily Repeat upper endoscopy in 2 months PATIENT CONDITION: stable DISPOSITION: Inpatient REPEAT EXAM: Return 2 months EGD Jairo Osorio MD eSigned: Jairo Osorio MD 11/22/2016 11:06 AM cc:
--- NOTE | 2016-11-22 11:46 | EKG ---
Date Performed: 11/21/2016 Time Performed: 16:11:44 PTAGE: 76 years EKG: Sinus rhythm WITH OCCASIONAL VENTRICULAR PREMATURE COMPLEXES LEFT AXIS DEVIATION ST/T-WAVE ABNORMALITY, CONSIDER LATERAL ISCHEMIA ABNORMAL ECG NO PREVIOUS TRACING DOCTOR: Samy Caceres Interpretating Date/Time 11/22/2016 11:46:09
[2016-11-22] MEDS ORDERED: PROPOFOL 200 MG/20 ML AMP IV ONE (12:00)
[2016-11-22 13:18] LABS: BICARBONATE 24.7 MEQ/L (21.0-32.0); POTASSIUM 3.3 MEQ/L (3.5-5.1)
[2016-11-22 13:32] LABS: AUTOMATED NEUTROPHIL # 4.5 TH/MM3 (1.8-7.7); BASOPHIL % 0.7 % (0.0-2.0); EOSINOPHIL # 0.2 TH/MM3 (0-0.4); EOSINOPHIL % 2.4 % (0.0-4.0); HEMATOCRIT 23.9 % (39.0-51.0); HEMO FLAGS DIFF FINAL; LYMPH % 20.2 % (9.0-44.0); LYMPHOCYTE # 1.4 TH/MM3 (1.0-4.8); MEAN CELL VOLUME 93.3 FL (80.0-100.0); MEAN CORPUSCULAR HEMOGLOBIN 31.7 PG (27.0-34.0); MONO % 10.1 % (0.0-8.0); NEUT % 66.6 % (16.0-70.0); PLATELET COUNT 202 TH/MM3 (150-450); RED BLOOD COUNT 2.63 MIL/MM3 (4.50-5.90); RED CELL DISTRIBUTION WIDTH 13.9 % (11.6-17.2); WHITE BLOOD COUNT 6.7 TH/MM3 (4.0-11.0)
[2016-11-22 14:06] LABS: HEMATOCRIT 27.1 % (39.0-51.0); REVIEW FLAG FINAL
--- NOTE | 2016-11-22 16:37 | HHI.FF ---
Face to Face Verification Diagnosis: (1) Physical deconditioning (2) Anemia (3) GI bleed Physical Therapy Order: Evaluate and Treat Occupational Therapy Order: Evaluate and Treat I have seen patient Kehinde Caceres on 11/22/16. My clinical findings support the need for the requested home health care services because: Ltd mobility - disease progression Deconditioned w/ increased weakness Limited ability to care for self High risk of falls I certify that my clinical findings support that this patient is homebound because: Post-op weakness Unsteady gait/balance Unsafe to leave home unassisted Unable to use public transportation Petty Fried Nov 22, 2016 16:37
--- NOTE | 2016-11-22 16:54 | HHI.PR ---
Subjective Remarks Follow up on patient with GIB. Patient seen and examined. Patient s/p EGD earlier today. Patient denies any complaints of n/v or abdominal pain. Denies any chest pain or SOB. Denies any fever or chills. Objective Vitals Vital Signs Date Time Temp Pulse Resp B/P (MAP) Pulse Ox O2 Delivery O2 Flow Rate FiO2 11/22/16 15:13 98.2 80 16 129/62 (84) 95 11/22/16 11:28 98.0 70 16 124/72 (89) 97 11/22/16 11:20 98.3 72 18 125/65 (85) 96 11/22/16 11:00 98.5 80 18 103/60 (74) 95 11/22/16 07:37 98.0 68 16 160/69 (99) 97 11/22/16 04:27 97.8 87 18 148/82 (104) 97 11/21/16 23:18 98.1 71 18 166/85 (112) 96 11/21/16 20:39 11/21/16 20:23 97 11/21/16 19:57 68 16 164/73 (103) 97 Room Air I/O 11/21/16 11/21/16 11/21/16 11/22/16 11/22/16 11/22/16 06:59 14:59 22:59 06:59 14:59 22:59 Intake Total 200 ml 400 ml Output Total 200 ml Balance 200 ml 200 ml Intake Oral 200 ml Other 400 ml Output Urine Total 200 ml Result Diagram: 11/22/16 1348 11/22/16 0627 Imaging Last Impressions Abdomen/Pelvis CT 11/21/16 1414 Signed Impressions: Service Date/Time: November 15:46 - CONCLUSION: Common diverticuli, vascular calcifications and degenerative changes of the lumbar spine. Freda Recinos MD Chest X-Ray 11/21/16 0000 Signed Impressions: Service Date/Time: November 16:38 - CONCLUSION: No acute cardiopulmonary disease. Freda Recinos MD Objective Remarks GENERAL: This is a well-nourished, well-developed patient, in no apparent distress. Awake and alert. Appears comfortable. SKIN: No rashes, warm and dry HEAD: Atraumatic. Normocephalic. EYES: Pupils equal round and reactive. Extraocular motions intact. No scleral icterus. ENT: Nose without bleeding, or drainage, Airway patent. NECK: Trachea midline. Supple CARDIOVASCULAR: Regular rate and rhythm systolic murmur at aortic arch noted (3/ 6) RESPIRATORY: Fair air entry bilaterally. No wheezes, rales, or rhonchi. GASTROINTESTINAL: Abdomen soft, non-tender, nondistended. Positive bowel sounds MUSCULOSKELETAL: Extremities without clubbing, cyanosis, or edema. Pedal pulses appreciated NEUROLOGICAL: Awake and alert. Moves all extremity. Normal speech.no focal neurological deficit Medications and IVs Current Medications Medications (Trade) Dose Ordered Sig/Donovan Route Start Time Stop Time Status Last Admin Pantoprazole Sodium 80 mg/ Sodium Chloride 100 ml @ 10 mls/hr CONTINUOUS IV 11/21/16 14:30 11/22/16 04:12 Sodium Chloride 1,000 ml @ 100 mls/hr Q10H IV 11/21/16 17:00 11/22/16 14:07 (NS Flush) 2 ml UNSCH PRN IV FLUSH 11/21/16 16:30 (NS Flush) 2 ml BID IV FLUSH 11/21/16 21:00 (Zofran Inj) 4 mg Q6H PRN IVP 11/21/16 16:30 (Narcan Inj) 0.4 mg UNSCH PRN IV 11/21/16 16:30 (Indira-Colace) 1 tab BID PO 11/21/16 21:00 (Milk Of Magnesia Liq) 30 ml Q12H PRN PO 11/21/16 16:30 (Senokot) 17.2 mg Q12H PRN PO 11/21/16 16:30 (Dulcolax Supp) 10 mg DAILY PRN RECTAL 11/21/16 16:30 (Lactulose Liq) 30 ml DAILY PRN PO 11/21/16 16:30 A/P Assessment and Plan Mr. Caceres is 76 years old, with history of hiatal hernia, and GERD, cerebrovascular accident, hypertension, and insulin dependent diabetes. Significant surgery includes triple bypass approximately 3 years ago. [facility] Caceres [facility] to [facility] as result of a positive guaiac test. Over the course of the past month, Mr. Caceres was reportedly felt a little bit more tired than usual as well as having intermittent chest discomfort. He did not qualify his chest discomfort as specifically as pain nor could he repeat the intensity of it. He did indicate that it did not radiate into his back arm or into his neck. He reported that over the course of the past week, he has been having black stools. Per the medical record Mr. Caceres is taking NSAIDs on a regular basis. GI bleed Normocytic anemia - positive rectal exam - hemoglobin 8.8 upon admission - Serial H&H q 6 hrs - hemoglobin stable at 9.2 - Transfuse in the event hemoglobin is less than 8. - GI following, appreciate assistance. s/p EGD by Dr. Osorio earlier today. Per his note, showed gastric ulcer no active bleeding and irregular Z line biopsy were not done because the patient on anticoagulation, no NSAIDS, resume diet, Protonix 40mg daily, repeat UGD in 2 mos, lowest possible dose of anticoagulation with monitoring of the hgb. - Resume Plavix and ASA. Repeat CBC in am to monitor trend. Heart murmur - Requested nursing to contact patient's gas engine operator (Dr. Natalia Toro [phone]) for most recent echocardiogram. Insulin-dependent diabetes - Continue home regimen - accucheck and ISS - diabetic diet Hypertension - Continue lisinopril 30 mg daily - Continue metoprolol 25 mg twice a day Hyperlipidemia - Continue atorvastatin 40 mg daily at bedtime Hypokalemia - replete - check mag level - am labs to monitor trend Deconditioned - PT/OT eval/tx DVT prophylaxis - SCDs. Patient resumed on ASA and Plavix Discussed with patient, nursing staff and Dr. Becerra Attending Statement The exam, history, and the medical decision-making described in the above note were completed with the assistance of the mid-level provider. I reviewed and agree with the findings presented. I attest that I had a [id number] encounter with the patient on the same day, and personally performed and documented my assessment and findings in the medical record. Patient seen and examined, discussed with him and his EGD result, we will resume his aspirin and Plavix considering his significant history of CVA, will monitor overnight his hemoglobin hopefully discharge later tomorrow if continued to be stable Abdomen examination benign nontender and soft, Petty Fried Nov 22, 2016 16:54 Obey Becerra MD Nov 22, 2016 19:58
[2016-11-22] MEDS ORDERED: POTASSIUM CHLORIDE 10 MEQ CONTROLLED RELEASE TAB PO ONE (17:00)
[2016-11-22] MEDS ORDERED: GLUCAGON 1 MG/ML VIAL OTHER PRN (17:00)
[2016-11-22] MEDS ORDERED: DEXTROSE 50% IN WATER 50 ML VIAL(D50) IV PRN (17:00)
[2016-11-22] MEDS: ASPIRIN EC 81 MG TABEC PO SCH (17:27)
[2016-11-22] MEDS: CLOPIDOGREL 75 MG TAB PO SCH (17:27)
[2016-11-22 19:08] LABS: HEMATOCRIT 25.4 % (39.0-51.0); REVIEW FLAG FINAL
[2016-11-22] MEDS: INSULIN ASPART SUPPLEMENTAL SCALE SQ SCH (21:14)
[2016-11-23 00:13] VITALS: PULSE 76
[2016-11-23] MEDS: SODIUM CHLOR 0.9% 1000 ML INJ 1,000 ML IV SCH ×2 (02:19→11:22)
[2016-11-23 04:20] VITALS: PULSE 73
[2016-11-23] MEDS: INSULIN ASPART SUPPLEMENTAL SCALE SQ SCH ×2 (06:02→13:03)
[2016-11-23 07:00] VITALS: PULSE 72
[2016-11-23 08:30] VITALS: BP 157/57; PULSE 80; RESP 18; TEMP 98.2; O2SAT 95
[2016-11-23] MEDS: SODIUM CHLORIDE 0.9% FLUSH 10 ML FLUSH IV FLUSH SCH (09:00)
[2016-11-23] MEDS: ASPIRIN EC 81 MG TABEC PO SCH (11:21)
[2016-11-23] MEDS: DOCUSATE SODIUM 50 MG/SENNA 8.6 MG TAB PO SCH (11:21)
[2016-11-23] MEDS: CLOPIDOGREL 75 MG TAB PO SCH (11:21)
[2016-11-23 12:57] LABS: HEMATOCRIT 26.7 % (39.0-51.0); MEAN CELL VOLUME 91.5 FL (80.0-100.0); MEAN CORPUSCULAR HEMOGLOBIN 31.1 PG (27.0-34.0); PLATELET COUNT 256 TH/MM3 (150-450); RED BLOOD COUNT 2.92 MIL/MM3 (4.50-5.90); RED CELL DISTRIBUTION WIDTH 14.3 % (11.6-17.2); REVIEW FLAG FINAL; WHITE BLOOD COUNT 8.2 TH/MM3 (4.0-11.0)
[2016-11-23 13:18] LABS: BICARBONATE 25.3 MEQ/L (21.0-32.0); POTASSIUM 3.5 MEQ/L (3.5-5.1)
--- NOTE | 2016-11-23 17:27 | HHI.PR ---
Subjective Remarks Doing well today, no hematemesis or hematochezia, no fever or chills Awaiting H&H if stable patient can be discharged Objective Vitals Vital Signs Date Time Temp Pulse Resp B/P (MAP) Pulse Ox O2 Delivery O2 Flow Rate FiO2 11/23/16 08:30 98.2 80 18 157/57 (90) 95 11/23/16 07:00 72 11/23/16 04:20 73 11/23/16 00:13 76 11/22/16 23:53 97.8 78 18 138/68 (91) 98 11/22/16 20:20 69 11/22/16 20:00 98.1 80 18 146/63 (90) 94 I/O 11/22/16 11/22/16 11/22/16 11/23/16 11/23/16 11/23/16 06:59 14:59 22:59 06:59 14:59 22:59 Intake Total 400 ml 1000 ml 480 ml Output Total 200 ml 300 ml 300 ml Balance 200 ml -300 ml 700 ml 480 ml Intake Oral 480 ml IV Total 1000 ml Other 400 ml Output Urine Total 200 ml 300 ml 300 ml # Voids 3 Result Diagram: 11/23/16 1210 11/23/16 1210 Objective Remarks GENERAL: This is a well-nourished, well-developed patient, in no apparent distress. SKIN: No rashes, warm and dry HEAD: Atraumatic. Normocephalic. EYES: Pupils equal round and reactive. Extraocular motions intact. No scleral icterus. ENT: Nose without bleeding, or drainage, Airway patent. NECK: Trachea midline. Supple CARDIOVASCULAR: Regular rate and rhythm without murmurs, gallops, or rubs. RESPIRATORY: Fair air entry bilaterally. No wheezes, rales, or rhonchi. GASTROINTESTINAL: Abdomen soft, non-tender, nondistended. Positive bowel sounds MUSCULOSKELETAL: Extremities without clubbing, cyanosis, or edema. Pedal pulses appreciated NEUROLOGICAL: Awake and alert. Moves all extremity. Normal speech.no focal neurological deficit A/P Assessment and Plan Mr. Caceres is 76 years old, with history of hiatal hernia, and GERD, cerebrovascular accident, hypertension, and insulin dependent diabetes. Significant surgery includes triple bypass approximately 3 years ago. [facility] Cace[facility] [place] [facility] as result of a positive guaiac test. Over the course of the past month, Mr. Caceres was reportedly felt a little bit more tired than usual as well as having intermittent chest discomfort. He did not qualify his chest discomfort as specifically as pain nor could he repeat the intensity of it. He did indicate that it did not radiate into his back arm or into his neck. He reported that over the course of the past week, he has been having black stools. Per the medical record Mr. Caceres is taking NSAIDs on a regular basis. GI bleed Normocytic anemia - positive rectal exam - hemoglobin 8.8 upon admission - Serial H&H q 6 hrs - hemoglobin stable at 9.2 - Transfuse in the event hemoglobin is less than 8. - GI following, appreciate assistance. s/p EGD by Dr. Osorio earlier today. Per his note, showed gastric ulcer no active bleeding and irregular Z line biopsy were not done because the patient on anticoagulation, no NSAIDS, resume diet, Protonix 40mg daily, repeat UGD in 2 mos, lowest possible dose of anticoagulation with monitoring of the hgb. - Resume Plavix and ASA. Hemoglobin today is 9.1> stable for discharge follow up as an outpatient - Insulin-dependent diabetes - Continue home regimen - accucheck and ISS - diabetic diet Hypertension - Continue lisinopril 30 mg daily - Continue metoprolol 25 mg twice a day Hyperlipidemia - Continue atorvastatin 40 mg daily at bedtime Hypokalemia - replete - check mag level - am labs to monitor trend Deconditioned - PT/OT eval/tx DVT prophylaxis - SCDs. Patient resumed on ASA and Plavix Discharge Planning Discharge patient to home Condition on discharge: Improved Regular Diet as tolerated Ad Debbie activity Rx written: See med rec Follow-up with primary care physician and GI in 2 weeks Obey Becerra MD Nov 23, 2016 17:27
== END 2016-11-23 14:57 | disposition home or self-care (01) ==
LOC: NEPE 13:33 → NEDA 16:31 → INTOOBSV 16:31 → NEPHCDU 20:53 → NEPGCP 11-23 05:15
PROVIDERS: ADMIT Hospitalist; ATTEND Hospitalist
DX: D64.9 Anemia, unspecified (principal); K25.4 Chronic or unspecified gastric ulcer with hemorrhage; K21.9 Gastro-esophageal reflux disease without esophagitis; R01.1 Cardiac murmur, unspecified; I25.10 Atherosclerotic heart disease of native coronary artery without angina pectoris; E11.9 Type 2 diabetes mellitus without complications; E78.5 Hyperlipidemia, unspecified; R94.31 Abnormal electrocardiogram [ECG] [EKG]; E87.6 Hypokalemia; Z79.4 Long term (current) use of insulin; Z86.73 Personal history of transient ischemic attack (TIA), and cerebral infarction without residual deficits; Z79.82 Long term (current) use of aspirin; Z79.02 Long term (current) use of antithrombotics/antiplatelets; Z95.1 Presence of aortocoronary bypass graft; Z96.641 Presence of right artificial hip joint; Z79.1 Long term (current) use of non-steroidal anti-inflammatories (NSAID)
CPT/HCPCS: 00740; 43235; 71010; 74177; 80048; 80053; 81001; 82550; 82552; 82948; 83690; 83735; 84484; 85014; 85018; 85025; 85027; 85610; 85730; 86850; 86900; 86901; 93005; 96361; 96365; 96372; 96375; 97162; 97167; 99285; C9113; G0378; G8987; G8988; G8989; J1815; J7030; Q9967